=== PATIENT | male | born 1955 | race Two or more races ===

== ENCOUNTER 2021-11-26 14:39 | Inpatient (IN) | payer MEDICARE, MEDICAID ==
[~2021-11-26] VITALS: Ht 170.2 cm; Wt 58.6 kg
[2021-11-26 16:05] LABS: Basophils # (auto) 0.2 10 ^3/uL (0-0.2); Basophils % (auto) 0.9 % (0.0-2.0); Eosinophils # (auto) 0 10 ^3/uL (0-0.8); Hematocrit 35.5 % (41.0-53.0); Hemoglobin 11.9 g/dL (13.5-17.5); Lymphocytes # (auto) 0.6 10 ^3/uL (0.4-5.4); Mean Corpuscular Hemoglobin 27.9 pg (28.0-32.0); Mean Corpuscular Hgb Conc. 33.4 g/dL (32.0-36.0); Mean Corpuscular Volume 83.7 fL (80.0-100.0); Monocytes # (auto) 0.7 10 ^3/uL (0-1.3); Monocytes % (auto) 3.7 % (0.0-12.0); Neutrophils # (auto) 18.8 10 ^3/uL (1.6-8.6); Neutrophils % (auto) 92.4 % (37.0-80.0); Red Blood Cells 4.24 10^6/uL (4.5-5.90); Red Cell Distribution Width 13.7 % (11.8-14.3); White Blood Cell 20.3 10^3/uL (4.4-10.8)
[2021-11-26 16:13] LABS: Urine Bacteria MOD /hpf (None Seen); Urine Blood 1+ /uL (Negative); Urine Mucus FEW (None Seen); Urine Specific Gravity 1.015 (1.001-1.035); Urine WBC 495 /hpf (0 - 3); Urine WBC Clumps PRESENT /hpf (None Seen)
[2021-11-26 16:25] LABS: Albumin 2.8 g/dL (3.4-5.0); Calcium 8.9 mg/dL (8.5-10.1); Potassium 3.3 mmol/L (3.5-5.1)
[2021-11-26 16:28] LABS: Bilirubin, Total 1.3 mg/dL (0.2-1.0); Total Protein 8.1 g/dL (6.4-8.2)
[2021-11-26] MEDS ORDERED: SODIUM CHLORIDE 0.9% 1,000 ML IV ONE (18:15)
[2021-11-26] MEDS ORDERED: VANCOMYCIN 1GM/250ML 250 ML IV ONE ×2 (18:15→23:00)
[2021-11-26] MEDS ORDERED: PIPERACILLIN-TAZOB 3.375GM 100 ML IV ONE (18:15)
[2021-11-26] MEDS ORDERED: DEXTROSE (50%) 50ML SYRG IV PRN (22:30)
[2021-11-26] MEDS ORDERED: VANCOMYCIN PER PHARMACY 0 MG IV SCH (22:30)
[2021-11-26] MEDS ORDERED: ACETAMINOPHEN 325 MG TAB PO PRN (22:30)
[2021-11-26] MEDS ORDERED: DOCUSATE SOD 100 MG CAP PO PRN (22:30)
[2021-11-26] MEDS ORDERED: POTASSIUM CHL 20MEQ/100ML 100 ML IV SCH (22:30)
[2021-11-26] MEDS ORDERED: ALBUMIN 25% 100 ML IV ONE (22:30)
[2021-11-26] MEDS: SODIUM CHLORIDE 0.9% 1,000 ML IV SCH (23:06)
[2021-11-26] MEDS ORDERED: MORPHINE SULFATE INJ 2 MG/ml SYRG IV PRN (23:45)
[2021-11-26] MEDS ORDERED: NITROGLYCERIN 0.4 MG SL TAB SL PRN (23:45)
[2021-11-27 05:00] VITALS: BP 121/62
[2021-11-27] MEDS: PIPERACILLIN-TAZOB 3.375GM 100 ML IV SCH ×3 (05:37→22:18)
[2021-11-27] MEDS: ONDANSETRON HCL 4 MG/2 ML VIAL IV PRN (05:37)
[2021-11-27] MEDS: HYDROcodone-ACET 5/325MG TAB PO PRN ×2 (05:38→22:19)
[2021-11-27 06:06] VITALS: BP 133/68
[2021-11-27 08:08] LABS: Basophils # (auto) 0 10 ^3/uL (0-0.2); Eosinophils # (auto) 0 10 ^3/uL (0-0.8); Hematocrit 27.9 % (41.0-53.0); Hemoglobin 9.5 g/dL (13.5-17.5); Lymphocytes # (auto) 0.7 10 ^3/uL (0.4-5.4); Lymphocytes % (auto) 4.7 % (10.0-50.0); Mean Corpuscular Hemoglobin 28.2 pg (28.0-32.0); Mean Corpuscular Hgb Conc. 34.1 g/dL (32.0-36.0); Mean Corpuscular Volume 82.7 fL (80.0-100.0); Monocytes # (auto) 0.6 10 ^3/uL (0-1.3); Monocytes % (auto) 4.3 % (0.0-12.0); Neutrophils # (auto) 13.2 10 ^3/uL (1.6-8.6); Red Blood Cells 3.37 10^6/uL (4.5-5.90); Red Cell Distribution Width 13.7 % (11.8-14.3); White Blood Cell 14.6 10^3/uL (4.4-10.8)
[2021-11-27 08:26] LABS: Albumin 2.4 g/dL (3.4-5.0); Calcium 7.8 mg/dL (8.5-10.1); Potassium 3.2 mmol/L (3.5-5.1)
[2021-11-27 08:27] VITALS: BP 104/54
[2021-11-27 08:28] LABS: Cholesterol 93 mg/dL (< 200); HDL Cholesterol 13 mg/dL (40-59); LDL Cholesterol 60 mg/dL (< 100); Triglycerides 127 mg/dL (< 150)
[2021-11-27 08:30] LABS: BUN/Creatinine Ratio 14.6; Bilirubin, Total 1.2 mg/dL (0.2-1.0); Total Protein 6.5 g/dL (6.4-8.2)
[2021-11-27] MEDS: POTASSIUM CHL 20MEQ/100ML 100 ML IV SCH ×2 (08:32→11:25)
[2021-11-27] MEDS: ACCU-CHEK COMFORT CURVE STRIP VI SCH ×4 (08:32→22:20)
[2021-11-27] MEDS: InsuLIN REG 1unit/0.01ml Soln (100units/ml) SC SCH ×4 (09:22→22:35)
[2021-11-27] MEDS: FAMOTIDINE (10MG/ML) 2ML VL IV SCH (09:22)
[2021-11-27] MEDS: ENOXAPARIN SOD 40 MG/0.4 ML SYRINGE SC SCH (09:23)
[2021-11-27] MEDS: VANCOMYCIN 1GM/250ML 250 ML IV SCH ×2 (11:26→23:34)
[2021-11-27 13:00] VITALS: BP 118/67
[2021-11-27] MEDS: SODIUM CHLORIDE 0.9% 1,000 ML IV SCH (14:46)
[2021-11-27 16:49] VITALS: BP 133/70
[2021-11-27 22:00] VITALS: BP 121/64
[2021-11-27] MEDS: ATORVASTATIN 20 MG TAB PO SCH (22:18)
[2021-11-28 04:30] VITALS: BP 118/61
[2021-11-28 05:50] LABS: Basophils # (auto) 0 10 ^3/uL (0-0.2); Eosinophils # (auto) 0.1 10 ^3/uL (0-0.8); Eosinophils % (auto) 0.8 % (0.0-7.0); Hematocrit 28.8 % (41.0-53.0); Hemoglobin 9.5 g/dL (13.5-17.5); Mean Corpuscular Hgb Conc. 33.2 g/dL (32.0-36.0); Mean Corpuscular Volume 84.3 fL (80.0-100.0); Monocytes # (auto) 0.5 10 ^3/uL (0-1.3); Monocytes % (auto) 4.3 % (0.0-12.0); Neutrophils # (auto) 10.9 10 ^3/uL (1.6-8.6); Neutrophils % (auto) 86.9 % (37.0-80.0); Red Blood Cells 3.41 10^6/uL (4.5-5.90); Red Cell Distribution Width 13.5 % (11.8-14.3); White Blood Cell 12.6 10^3/uL (4.4-10.8)
[2021-11-28 06:02] LABS: INR 1.1 (0.9-1.15); Partial Thromboplastin Time 29.1 sec (23.6-33.0)
[2021-11-28] MEDS: PIPERACILLIN-TAZOB 3.375GM 100 ML IV SCH ×3 (06:03→22:34)
[2021-11-28] MEDS: ACCU-CHEK COMFORT CURVE STRIP VI SCH ×4 (06:03→22:34)
[2021-11-28] MEDS: InsuLIN REG 1unit/0.01ml Soln (100units/ml) SC SCH ×4 (06:04→22:34)
[2021-11-28 06:10] LABS: Potassium 3.7 mmol/L (3.5-5.1)
[2021-11-28 06:18] LABS: Albumin 2.2 g/dL (3.4-5.0); Bilirubin, Total 1.3 mg/dL (0.2-1.0); Calcium 7.8 mg/dL (8.5-10.1); Magnesium 1.7 mg/dL (1.6-2.6); Total Protein 6.3 g/dL (6.4-8.2)
[2021-11-28] MEDS: SODIUM CHLORIDE 0.9% 1,000 ML IV SCH (07:50)
[2021-11-28 09:30] VITALS: BP 114/59
[2021-11-28] MEDS: ENOXAPARIN SOD 40 MG/0.4 ML SYRINGE SC SCH (10:00)
[2021-11-28] MEDS: FAMOTIDINE (10MG/ML) 2ML VL IV SCH (10:00)
[2021-11-28] MEDS: VANCOMYCIN 1GM/250ML 250 ML IV SCH (11:00)
[2021-11-28] MEDS ORDERED: ERGOCALCIFEROL 50,000 UNIT(1.25MG) CAP PO SCH (15:00)
[2021-11-28 16:47] VITALS: BP_SYST 106; BP_SYST 160; BP_DIAS 59; BP_DIAS 67
[2021-11-28 20:45] VITALS: BP 153/70
[2021-11-28] MEDS: ATORVASTATIN 20 MG TAB PO SCH (22:34)
[2021-11-29] MEDS: SODIUM CHLORIDE 0.9% 1,000 ML IV SCH ×2 (00:30→17:10)
[2021-11-29] MEDS: VANCOMYCIN 1GM/250ML 250 ML IV SCH ×2 (01:16→15:00)
[2021-11-29 05:00] VITALS: BP 138/64
[2021-11-29] MEDS: PIPERACILLIN-TAZOB 3.375GM 100 ML IV SCH ×3 (06:11→21:24)
[2021-11-29] MEDS: ACCU-CHEK COMFORT CURVE STRIP VI SCH ×4 (06:18→21:23)
[2021-11-29] MEDS: InsuLIN REG 1unit/0.01ml Soln (100units/ml) SC SCH ×4 (06:21→21:40)
[2021-11-29] MEDS: ONDANSETRON HCL 4 MG/2 ML VIAL IV PRN (06:34)
[2021-11-29 07:15] LABS: Basophils # (auto) 0 10 ^3/uL (0-0.2); Basophils % (auto) 0.2 % (0.0-2.0); Eosinophils # (auto) 0.1 10 ^3/uL (0-0.8); Eosinophils % (auto) 1.1 % (0.0-7.0); Hematocrit 30.5 % (41.0-53.0); Hemoglobin 10.3 g/dL (13.5-17.5); Lymphocytes # (auto) 0.9 10 ^3/uL (0.4-5.4); Lymphocytes % (auto) 7.2 % (10.0-50.0); Mean Corpuscular Hemoglobin 28.5 pg (28.0-32.0); Mean Corpuscular Hgb Conc. 33.9 g/dL (32.0-36.0); Mean Corpuscular Volume 84.2 fL (80.0-100.0); Monocytes # (auto) 0.7 10 ^3/uL (0-1.3); Neutrophils # (auto) 10.7 10 ^3/uL (1.6-8.6); Neutrophils % (auto) 85.5 % (37.0-80.0); Red Blood Cells 3.62 10^6/uL (4.5-5.90); Red Cell Distribution Width 13.8 % (11.8-14.3); White Blood Cell 12.5 10^3/uL (4.4-10.8)
[2021-11-29 07:20] LABS: Potassium 3.8 mmol/L (3.5-5.1)
[2021-11-29 07:23] LABS: BUN/Creatinine Ratio 10.8; Calcium 8.2 mg/dL (8.5-10.1)
[2021-11-29 08:52] VITALS: BP 127/53
[2021-11-29] MEDS: ENOXAPARIN SOD 40 MG/0.4 ML SYRINGE SC SCH (10:00)
[2021-11-29] MEDS: FAMOTIDINE (10MG/ML) 2ML VL IV SCH (10:00)
[2021-11-29 13:11] VITALS: BP 126/51
[2021-11-29 16:59] VITALS: BP 147/53
[2021-11-29] MEDS: ATORVASTATIN 20 MG TAB PO SCH (21:23)
[2021-11-29] MEDS: HYDROcodone-ACET 5/325MG TAB PO PRN (21:47)
[2021-11-29 22:00] VITALS: BP 164/76
[2021-11-29 23:00] VITALS: BP 147/71
[2021-11-30] VITALS (7 sets, daily range): BP systolic 130–180; BP diastolic 60–79
[2021-11-30] MEDS: PIPERACILLIN-TAZOB 3.375GM 100 ML IV SCH ×3 (05:21→21:15)
[2021-11-30] MEDS: ACCU-CHEK COMFORT CURVE STRIP VI SCH ×4 (06:21→21:24)
[2021-11-30] MEDS: InsuLIN REG 1unit/0.01ml Soln (100units/ml) SC SCH ×4 (06:22→21:24)
[2021-11-30] MEDS: VANCOMYCIN 1GM/250ML 250 ML IV SCH (07:03)
[2021-11-30] MEDS: SODIUM CHLORIDE 0.9% 1,000 ML IV SCH (09:54)
[2021-11-30] MEDS: FAMOTIDINE (10MG/ML) 2ML VL IV SCH (09:54)
[2021-11-30] MEDS: ENOXAPARIN SOD 40 MG/0.4 ML SYRINGE SC SCH (09:54)
[2021-11-30] MEDS ORDERED: LORA-622 PO (10:47)
[2021-11-30] MEDS ORDERED: ATOR80TA PO (10:47)
[2021-11-30] MEDS ORDERED: ASPI81CH74 PO (10:47)
[2021-11-30] MEDS ORDERED: LISI-275 PO (10:47)
[2021-11-30] MEDS ORDERED: ESCI10TA PO (10:47)
[2021-11-30] MEDS ORDERED: METF-370 PO (10:47)
[2021-11-30] MEDS ORDERED: INSUINJ37 SC (10:47)
[2021-11-30] MEDS ORDERED: LIDOCAINE 2%HCL (LOCAL ANESTH.) INJ 10ml MDV ONE (12:09)
[2021-11-30] MEDS ORDERED: MIDAZOLAM HCL 2MG/2ML 2ml VIAL (1mg/ml) ONE (12:12)
[2021-11-30] MEDS ORDERED: fentaNYL CITRATE 100 MCG/2 ML VL ONE (12:12)
[2021-11-30] MEDS: HYDROcodone-ACET 5/325MG TAB PO PRN (16:31)
[2021-11-30] MEDS: hydrALAZINE HCL 25 MG TAB PO PRN (17:07)
[2021-11-30] MEDS: ATORVASTATIN 20 MG TAB PO SCH (21:16)
[2021-12-01] MEDS: SODIUM CHLORIDE 0.9% 1,000 ML IV SCH ×2 (02:30→16:51)
[2021-12-01 05:00] VITALS: BP 156/73
[2021-12-01] MEDS: PIPERACILLIN-TAZOB 3.375GM 100 ML IV SCH ×3 (05:36→21:59)
[2021-12-01] MEDS: hydrALAZINE HCL 25 MG TAB PO PRN ×2 (05:36→18:00)
[2021-12-01] MEDS: HYDROcodone-ACET 5/325MG TAB PO PRN (05:36)
[2021-12-01] MEDS: InsuLIN REG 1unit/0.01ml Soln (100units/ml) SC SCH ×4 (05:43→21:37)
[2021-12-01] MEDS: ACCU-CHEK COMFORT CURVE STRIP VI SCH ×4 (05:43→21:36)
[2021-12-01 06:46] LABS: Basophils # (auto) 0.1 10 ^3/uL (0-0.2); Basophils % (auto) 0.4 % (0.0-2.0); Eosinophils # (auto) 0.3 10 ^3/uL (0-0.8); Eosinophils % (auto) 2.4 % (0.0-7.0); Hematocrit 28.3 % (41.0-53.0); Hemoglobin 9.5 g/dL (13.5-17.5); Lymphocytes # (auto) 1.1 10 ^3/uL (0.4-5.4); Mean Corpuscular Hemoglobin 28.1 pg (28.0-32.0); Mean Corpuscular Hgb Conc. 33.5 g/dL (32.0-36.0); Mean Corpuscular Volume 83.7 fL (80.0-100.0); Monocytes % (auto) 7.4 % (0.0-12.0); Neutrophils # (auto) 10.9 10 ^3/uL (1.6-8.6); Neutrophils % (auto) 81.8 % (37.0-80.0); Nucleated Red Blood Cells % 0.1 %; Red Blood Cells 3.38 10^6/uL (4.5-5.90); Red Cell Distribution Width 14.2 % (11.8-14.3); White Blood Cell 13.4 10^3/uL (4.4-10.8)
[2021-12-01 06:52] LABS: BUN/Creatinine Ratio 9.5; Calcium 8.7 mg/dL (8.5-10.1); Potassium 3.3 mmol/L (3.5-5.1)
[2021-12-01 08:00] VITALS: BP 135/60
[2021-12-01 09:00] VITALS: BP 135/60
[2021-12-01] MEDS: ENOXAPARIN SOD 40 MG/0.4 ML SYRINGE SC SCH (09:27)
[2021-12-01] MEDS ORDERED: VANCOMYCIN 1GM/250ML 250 ML IV SCH (12:00)
[2021-12-01] MEDS ORDERED: POTASSIUM CHL 20 Meq TABLET PO ONE (17:00)
[2021-12-01] MEDS: ATORVASTATIN 20 MG TAB PO SCH (21:37)
[2021-12-02 05:00] VITALS: BP 154/80
[2021-12-02] MEDS: PIPERACILLIN-TAZOB 3.375GM 100 ML IV SCH ×2 (05:41→14:21)
[2021-12-02] MEDS: InsuLIN REG 1unit/0.01ml Soln (100units/ml) SC SCH ×3 (06:27→17:20)
[2021-12-02] MEDS: ACCU-CHEK COMFORT CURVE STRIP VI SCH ×3 (06:27→17:19)
[2021-12-02 06:54] LABS: Basophils # (auto) 0 10 ^3/uL (0-0.2); Basophils % (auto) 0.2 % (0.0-2.0); Eosinophils # (auto) 0.4 10 ^3/uL (0-0.8); Eosinophils % (auto) 3.3 % (0.0-7.0); Hematocrit 29.1 % (41.0-53.0); Hemoglobin 9.5 g/dL (13.5-17.5); Lymphocytes # (auto) 1.3 10 ^3/uL (0.4-5.4); Lymphocytes % (auto) 9.4 % (10.0-50.0); Mean Corpuscular Hemoglobin 27.3 pg (28.0-32.0); Mean Corpuscular Hgb Conc. 32.7 g/dL (32.0-36.0); Mean Corpuscular Volume 83.5 fL (80.0-100.0); Monocytes # (auto) 1.1 10 ^3/uL (0-1.3); Monocytes % (auto) 8.2 % (0.0-12.0); Neutrophils # (auto) 10.6 10 ^3/uL (1.6-8.6); Neutrophils % (auto) 78.9 % (37.0-80.0); Red Blood Cells 3.49 10^6/uL (4.5-5.90); Red Cell Distribution Width 14.3 % (11.8-14.3); White Blood Cell 13.4 10^3/uL (4.4-10.8)
[2021-12-02 06:59] LABS: Potassium 3.7 mmol/L (3.5-5.1)
[2021-12-02 07:04] LABS: BUN/Creatinine Ratio 10.2; Calcium 8.6 mg/dL (8.5-10.1)
[2021-12-02 08:00] VITALS: BP 145/77
[2021-12-02 09:00] VITALS: BP 145/77
[2021-12-02] MEDS: ENOXAPARIN SOD 40 MG/0.4 ML SYRINGE SC SCH (10:00)
[2021-12-02] MEDS: SODIUM CHLORIDE 0.9% 1,000 ML IV SCH (12:10)
[2021-12-02 12:39] VITALS: BP 160/72
[2021-12-02] MEDS ORDERED: IOHEXOL 300 MG/ML 100ML BOTTLE IJ ONE (14:38)
[2021-12-02 16:45] VITALS: BP 172/75
[2021-12-02] MEDS: hydrALAZINE HCL 25 MG TAB PO PRN (17:19)
[2021-12-02] MEDS ORDERED: ERGO1CAP23 PO (18:00)
[2021-12-02] MEDS ORDERED: EMPA1TAB PO (18:00)
[2021-12-02] MEDS ORDERED: LEVO750T8 PO (18:00)
[2021-12-02 18:32] VITALS: BP 172/75
== END 2021-12-02 19:17 | disposition home or self-care (01) | DRG 871 ==
LOC: ER 14:39 → TELE 23:34 → TELE-WESTW 11-27 04:23
PROVIDERS: ADMIT Nurse Practitioner Family; ATTEND Internal Medicine
PROC: 0T9130Z Drainage of Left Kidney with Drainage Device, Percutaneous Approach (ICD-10-PCS; principal; 2021-11-30)
DX: A41.51 Sepsis due to Escherichia coli [E. coli] (principal); N15.1 Renal and perinephric abscess; N39.0 Urinary tract infection, site not specified; E88.09 Other disorders of plasma-protein metabolism, not elsewhere classified; E11.65 Type 2 diabetes mellitus with hyperglycemia; E87.6 Hypokalemia; E55.9 Vitamin D deficiency, unspecified; N40.0 Benign prostatic hyperplasia without lower urinary tract symptoms; Z20.822 Contact with and (suspected) exposure to COVID-19; E78.5 Hyperlipidemia, unspecified; I10 Essential (primary) hypertension; Z79.4 Long term (current) use of insulin
CPT/HCPCS: 10005; 36415; 74018; 74022; 74150; 74176; 76000; 77012; 80048; 80053; 80061; 80202; 81001; 82306; 82962; 83036; 83605; 83690; 83735; 85025; 85610; 85730; 87040; 87077; 87086; 87088; 87186; 87205; 93005; 96365; 96366; 96367; 96368; 99291; C1729; G0378; J1815; J2001; J2250; J2405; J2543; J3480; J3490; P9047

== ENCOUNTER 2022-04-13 17:41 | Inpatient (IN) | payer MEDICARE, MEDICAID ==
[~2022-04-13] VITALS: Ht 167.6 cm; Wt 51.6 kg
[~2022-04-13 17:41] MED LIST: ASPI81CH74 PO; ATOR80TA PO; EMPA1TAB PO; ERGO1CAP23 PO; ESCI10TA PO; INSUINJ37 SC; LEVO750T8 PO; LISI-275 PO; LORA-622 PO; METF-370 PO
[2022-04-13 18:36] LABS: Urine Bacteria FEW /hpf (None Seen); Urine Blood Negative /uL (Negative); Urine Specific Gravity 1.012 (1.001-1.035); Urine WBC 42 /hpf (0 - 3); Urine WBC Clumps PRESENT /hpf (None Seen)
[2022-04-13 19:47] LABS: Basophils # (auto) 0.1 10 ^3/uL (0-0.2); Basophils % (auto) 0.7 % (0.0-2.0); Eosinophils # (auto) 0.7 10 ^3/uL (0-0.8); Eosinophils % (auto) 7.2 % (0.0-7.0); Hematocrit 41.2 % (41.0-53.0); Hemoglobin 13.3 g/dL (13.5-17.5); Lymphocytes # (auto) 3.2 10 ^3/uL (0.4-5.4); Lymphocytes % (auto) 35.1 % (10.0-50.0); Mean Corpuscular Hemoglobin 27.9 pg (28.0-32.0); Mean Corpuscular Hgb Conc. 32.4 g/dL (32.0-36.0); Mean Corpuscular Volume 86.1 fL (80.0-100.0); Monocytes # (auto) 0.6 10 ^3/uL (0-1.3); Monocytes % (auto) 6.7 % (0.0-12.0); Neutrophils # (auto) 4.6 10 ^3/uL (1.6-8.6); Neutrophils % (auto) 50.3 % (37.0-80.0); Red Blood Cells 4.78 10^6/uL (4.5-5.90); Red Cell Distribution Width 15.2 % (11.8-14.3); White Blood Cell 9.2 10^3/uL (4.4-10.8)
[2022-04-13] MEDS ORDERED: SODIUM CHLORIDE 0.9% 500 ML IVB ONE (20:00)
[2022-04-13] MEDS ORDERED: metroNIDAZOLE 500MG/100ML 100 ML IV ONE (20:00)
[2022-04-13 20:03] LABS: Albumin 3.8 g/dL (3.4-5.0); Calcium 9.4 mg/dL (8.5-10.1)
[2022-04-13 20:06] LABS: BUN/Creatinine Ratio 12.7; Bilirubin, Total 0.2 mg/dL (0.2-1.0); Total Protein 7.8 g/dL (6.4-8.2)
[2022-04-13 20:36] LABS: INR 0.95 (0.9-1.15); Partial Thromboplastin Time 25.9 sec (24.6-33.4)
[2022-04-13] MEDS ORDERED: MORPHINE SULFATE INJ 2 MG/ml SYRG IV PRN (22:00)
[2022-04-13] MEDS ORDERED: HYDROcodone-ACET 5/325MG TAB PO PRN (22:00)
[2022-04-13] MEDS ORDERED: ONDANSETRON HCL 4 MG/2 ML VIAL IV PRN (22:00)
[2022-04-13] MEDS ORDERED: cefTRIAXone 1GM/50ML D5W 50 ML IV ONE (22:00)
[2022-04-13] MEDS: ACCU-CHEK COMFORT CURVE STRIP VI SCH (22:00)
[2022-04-13] MEDS ORDERED: TEMAZEPAM 15 MG CAP PO PRN (22:00)
[2022-04-13] MEDS ORDERED: ACETAMINOPHEN 325 MG TAB PO PRN (22:00)
[2022-04-13] MEDS ORDERED: PANTOPRAZOLE 40 MG TAB PO ONE (22:00)
[2022-04-13] MEDS: metroNIDAZOLE 500MG/100ML 100 ML IV SCH (22:00)
[2022-04-13] MEDS: InsuLIN REG 1unit/0.01ml Soln (100units/ml) SC SCH (22:00)
[2022-04-13] MEDS ORDERED: DEXTROSE (50%) 50ML SYRG IV PRN (22:00)
[2022-04-13] MEDS: ATORVASTATIN 20 MG TAB PO SCH (23:12)
[2022-04-14] MEDS ORDERED: metroNIDAZOLE 500MG/100ML 100 ML IV ONE (06:00)
[2022-04-14] MEDS: metroNIDAZOLE 500MG/100ML 100 ML IV SCH ×3 (06:12→23:30)
[2022-04-14 06:51] LABS: Basophils # (auto) 0 10 ^3/uL (0-0.2); Basophils % (auto) 0.6 % (0.0-2.0); Eosinophils # (auto) 0.5 10 ^3/uL (0-0.8); Eosinophils % (auto) 6.7 % (0.0-7.0); Hematocrit 33.5 % (41.0-53.0); Hemoglobin 11.3 g/dL (13.5-17.5); Lymphocytes # (auto) 2.1 10 ^3/uL (0.4-5.4); Lymphocytes % (auto) 28.1 % (10.0-50.0); Mean Corpuscular Hemoglobin 28.9 pg (28.0-32.0); Mean Corpuscular Hgb Conc. 33.8 g/dL (32.0-36.0); Mean Corpuscular Volume 85.6 fL (80.0-100.0); Monocytes # (auto) 0.5 10 ^3/uL (0-1.3); Monocytes % (auto) 7.1 % (0.0-12.0); Neutrophils # (auto) 4.4 10 ^3/uL (1.6-8.6); Neutrophils % (auto) 57.5 % (37.0-80.0); Nucleated Red Blood Cells % 0.1 %; Red Blood Cells 3.92 10^6/uL (4.5-5.90); Red Cell Distribution Width 15.2 % (11.8-14.3); White Blood Cell 7.6 10^3/uL (4.4-10.8)
[2022-04-14] MEDS: InsuLIN REG 1unit/0.01ml Soln (100units/ml) SC SCH ×4 (07:00→22:52)
[2022-04-14 07:05] LABS: Albumin 2.8 g/dL (3.4-5.0); BUN/Creatinine Ratio 12.9; Calcium 8.3 mg/dL (8.5-10.1); Potassium 3.8 mmol/L (3.5-5.1)
[2022-04-14 07:10] LABS: Bilirubin, Total 0.4 mg/dL (0.2-1.0); Total Protein 5.9 g/dL (6.4-8.2)
[2022-04-14] MEDS: ACCU-CHEK COMFORT CURVE STRIP VI SCH ×4 (07:18→22:52)
[2022-04-14] MEDS: cefTRIAXone 1GM/50ML D5W 50 ML IV SCH (09:53)
[2022-04-14] MEDS ORDERED: LISINOPRIL 5 MG TAB PO SCH (10:00)
[2022-04-14] MEDS: PANTOPRAZOLE 40 MG TAB PO SCH (10:16)
[2022-04-14] MEDS: ASPirin 81 mg TAB PO SCH (10:16)
[2022-04-14] MEDS: SODIUM CHLORIDE 0.9% 1,000 ML IV SCH (13:00)
[2022-04-14] MEDS: ATORVASTATIN 20 MG TAB PO SCH (23:16)
[2022-04-15] VITALS: BP 165/78
[2022-04-15 00:40] VITALS: BP 165/78
[2022-04-15] MEDS ORDERED: hydrALAZINE HCL 20 MG/ML VL IV ONE (01:00)
[2022-04-15] MEDS: SODIUM CHLORIDE 0.9% 1,000 ML IV SCH (02:20)
[2022-04-15 05:00] VITALS: BP 126/66
[2022-04-15] MEDS: ACCU-CHEK COMFORT CURVE STRIP VI SCH ×2 (06:21→11:24)
[2022-04-15] MEDS: metroNIDAZOLE 500MG/100ML 100 ML IV SCH ×2 (06:21→14:00)
[2022-04-15] MEDS: InsuLIN REG 1unit/0.01ml Soln (100units/ml) SC SCH ×2 (06:22→11:25)
[2022-04-15] MEDS: cefTRIAXone 1GM/50ML D5W 50 ML IV SCH (08:27)
[2022-04-15 08:54] VITALS: BP 109/43
[2022-04-15] MEDS: PANTOPRAZOLE 40 MG TAB PO SCH (09:10)
[2022-04-15] MEDS: ASPirin 81 mg TAB PO SCH (09:11)
[2022-04-15] MEDS ORDERED: LISINOPRIL 5 MG TAB PO SCH (10:00)
[2022-04-15] MEDS ORDERED: DOCUSATE SOD 100 MG CAP PO SCH (10:00)
[2022-04-15] MEDS ORDERED: LISI20TA28 PO (11:50)
[2022-04-15] MEDS ORDERED: TAM04C PO (11:50)
[2022-04-15] MEDS ORDERED: METR500T PO (11:50)
[2022-04-15] MEDS ORDERED: CIPR500T4 PO (11:50)
[2022-04-15] MEDS ORDERED: ATOR-47 PO (11:50)
[2022-04-15] MEDS ORDERED: METF-370 PO (11:50)
[2022-04-15 13:00] VITALS: BP 137/51
== END 2022-04-15 14:25 | disposition home or self-care (01) | DRG 392 ==
LOC: ER 17:41 → OVERFLOW 21:53 → CENTRAL 04-14 23:15
PROVIDERS: ADMIT Nurse Practitioner; ATTEND Nurse Practitioner Acute Care
DX: K57.32 Diverticulitis of large intestine without perforation or abscess without bleeding (principal); N39.0 Urinary tract infection, site not specified; R64 Cachexia; Z68.1 Body mass index [BMI] 19.9 or less, adult; E11.9 Type 2 diabetes mellitus without complications; E78.5 Hyperlipidemia, unspecified; F17.210 Nicotine dependence, cigarettes, uncomplicated; I10 Essential (primary) hypertension; Z20.822 Contact with and (suspected) exposure to COVID-19; N40.0 Benign prostatic hyperplasia without lower urinary tract symptoms; Z79.4 Long term (current) use of insulin; Z82.49 Family history of ischemic heart disease and other diseases of the circulatory system; Z83.3 Family history of diabetes mellitus
CPT/HCPCS: 36415; 74176; 80053; 81001; 82378; 82962; 83036; 83690; 84154; 85025; 85610; 85730; 87426; 96365; 96367; G0378; J0696; J2405; J3490